=== PATIENT | male | born 1975 | race Caucasian/White ===

== ENCOUNTER 2017-10-18 20:44 | Emergency (ER) | payer MEDICAID, OTHER ==
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
[2017-10-18 21:01] VITALS: BP 115/64; PULSE 76; RESP 16; TEMP 98.1; O2SAT 97
[2017-10-18] MEDS ORDERED: ACETAMINOPHEN 500 MG TAB PO ONE (21:24)
[2017-10-18] MEDS ORDERED: IBUPROFEN SUSP 100 MG/5 ML UDCUP PO ONE (21:24)
[2017-10-18] MEDS ORDERED: IBUPROFEN 800 MG TAB PO ONE (21:29)
== END 2017-10-18 21:46 | disposition home or self-care (01) ==
LOC: EDUNIT#
DX: S82.041A Displaced comminuted fracture of right patella, initial encounter for closed fracture (principal); V18.0XXA Pedal cycle driver injured in noncollision transport accident in nontraffic accident, initial encounter; Y92.410 Unspecified street and highway as the place of occurrence of the external cause; Y99.8 Other external cause status; Y93.55 Activity, bike riding
CPT/HCPCS: L1830